=== PATIENT | female | born 1965 | race Caucasian/White ===

== ENCOUNTER 2018-08-13 05:14 | Emergency (ER) | payer BC, OTHER ==
--- NOTE | 2018-08-13 05:39 | EDM.PDOC ---
ED HPI GENERAL MEDICAL PROBLEM - General Chief Complaint: Upper Extremity Injury/Pain Stated Complaint: FELL- HURT LEFT ELBOW Time Seen by Provider: 08/13/18 05:31 - History of Present Illness INITIAL COMMENTS - FREE TEXT/NARRATIVE: HISTORY AND PHYSICAL: History of present illness: The patient is a 53-year-old female who says that she slipped on the ice and fell approximately an hour ago is going out for the dog. She said that when she fell she landed directly on the left elbow hitting the olecranon area but no outstretched arm. She did not pass out or black out and did not hit her head neck or back and has no head neck or back pain. She has no other extremity complaints and said she noticed swelling there but did not take anything for the pain prior to coming here. She said that she only came here at the insistence of her significant other. She has no distal wrist or hand pain per se but feels tingling in the fingers and she has not been moving them very much. She has no proximal humerus or shoulder pain and no clavicle pain. Review of systems: As per history of present illness and below otherwise all systems reviewed and negative. Past medical history: As per history of present illness and as reviewed below otherwise noncontributory. Surgical history: As per history of present illness and as reviewed below otherwise noncontributory. Social history: No reported history of drug or alcohol abuse. Family history: As per history of present illness and as reviewed below otherwise noncontributory. Physical exam: General: Well-developed well-nourished female who is nontoxic and vital signs are noted by me HEENT: Atraumatic, normocephalic, negative for conjunctival pallor or scleral icterus, mucous membranes moist, throat clear, neck supple, nontender, trachea midline. There are no midline step-offs in his defects of the cervical spine Lungs: Clear to auscultation, breath sounds equal bilaterally, chest nontender. Heart: S1S2, regular rate and rhythm no overt murmurs Abdomen: Deferred Pelvis: Deferred Genitourinary: Deferred. Rectal: Deferred. Extremities: Atraumatic, full range of motion of all extremities with the exception of the left elbow with the patient has tenderness and localized olecranon swelling. There is tenderness with palpation of the olecranon as well as the supracondylar areas but no proximal humerus apical or shoulder tenderness and no distal radius ulna wrist and hand or digit tenderness on the left. 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 Neuro: Awake, alert, oriented. Cranial nerves II through XII unremarkable. Cerebellum unremarkable. Motor and sensory unremarkable throughout. Exam nonfocal. Diagnostics: X-ray left elbow Therapeutics: Sling Impression: Fall with left elbow injury Definitive disposition and diagnosis as appropriate pending reevaluation and review of above. left elbow Pain Score (Numeric/FACES): 6 - Related Data Allergies Allergy/AdvReac Type Severity Reaction Status Date / Time No Known Allergies Allergy Verified 08/13/18 05:31 Home Meds: Home Meds . [No Known Home Meds] 09/08/15 [History] Past Medical History - Past Health History Medical/Surgical History: Denies Medical/Surgical History - Infectious Disease History Infectious Disease History: Reports: Chicken Pox Other Infectious Disease History: childhood. Social & Family History - Family History Family Medical History: Noncontributory - Tobacco Use Smoking Status *Q: Current Every Day Smoker Years of Tobacco use: 30 Packs/Tins Daily: 0.5 - Caffeine Use Caffeine Use: Reports: Coffee - Recreational Drug Use Recreational Drug Use: No Review of Systems - Review of Systems Review Of Systems: ROS reveals no pertinent complaints other than HPI. ED EXAM, GENERAL - Physical Exam Exam: See Below (See dictation) Course - Vital Signs Last Recorded V/S: Last Vital Signs Temp 36.6 C 08/13/18 05:29 Pulse 88 08/13/18 05:29 Resp 19 08/13/18 05:29 BP 142/80 H 08/13/18 05:29 Pulse Ox 96 08/13/18 05:29 - Orders/Labs/Meds Orders: Active Orders 24 hr Category Date Time Status DME for Discharge [COMM] Stat Oth 08/13/18 06:17 Ordered Departure - Departure Time of Disposition: 06:19 Disposition: Home, Self-Care 01 Condition: Good Clinical Impression: Injury of left elbow Qualifiers: Encounter type: initial encounter Qualified Code(s): S59.902A - Unspecified injury of left elbow, initial encounter - Discharge Information Referrals: PCP,None [Primary Care Provider] - Forms: ED Department Discharge Additional Instructions: The following information is given to patients seen in the emergency department who are being discharged to home. This information is to outline your options for follow-up care. We provide all patients seen in our emergency department with a follow-up referral. The need for follow-up, as well as the timing and circumstances, are variable depending upon the specifics of your emergency department visit. If you don't have a primary care physician on staff, we will provide you with a referral. We always advise you to contact your personal physician following an emergency department visit to inform them of the circumstance of the visit and for follow-up with them and/or the need for any referrals to a consulting specialist. The emergency department will also refer you to a specialist when appropriate. This referral assures that you have the opportunity for followup care with a specialist. All of these measure are taken in an effort to provide you with optimal care, which includes your followup. Under all circumstances we always encourage you to contact your private physician who remains a resource for coordinating your care. When calling for followup care, please make the office aware that this follow-up is from your recent emergency room visit. If for any reason you are refused follow-up, please contact the [facility] emergency department at and ask to speak to the emergency department charge nurse. [facility]--Orthopedic clinic Professional [address] [address] Keep ice on the area and elevate as much as possible. Please call and schedule follow-up appointment in our ortho clinic for further care and evaluation return to ER as needed as discussed. Use [id number] Tylenol and/or ibuprofen for pain management. Use sling for next 2-3 days for support but removing and range of motion the elbow every 1-2 hours as we discussed to keep the joint open and loose - My Orders Last 24 Hours: My Active Orders 08/13/18 06:17 DME for Discharge [COMM] Stat - Assessment/Plan Last 24 Hours: My Active Orders 08/13/18 06:17 DME for Discharge [COMM] Stat
--- NOTE | 2018-08-13 06:15 | CR ---
3 VIEWS left elbow INDICATION: Injury. IMPRESSION: No visualized fracture. Alignments anatomic. Joint spaces unremarkable. Dictated by Murphy Moncada MD @ Aug 13 2018 6:13AM Signed by Dr. Murphy Moncada @ Aug 13 2018 6:13AM
[2018-08-13 06:41] VITALS: BP 144/100
== END 2018-08-13 06:30 | disposition home or self-care (01) ==
LOC: MW.ED 05:14
DX: S59.902A Unspecified injury of left elbow, initial encounter (principal); W00.0XXA Fall on same level due to ice and snow, initial encounter; F17.210 Nicotine dependence, cigarettes, uncomplicated
CPT/HCPCS: 73080-26-LT; 73080-LT; 99283

== ENCOUNTER 2019-02-26 08:44 | Day surgery (SDC) | payer OTHER ==
[~2019-02-26 08:44] MED LIST: Lactated Ringers 1,000 ML IV SCH; Lidocaine 2% 5 ML SDV ONE; Midazolam 1 MG/ML 2 ML SDV ONE; Propofol 200 MG/20 ML SDV ONE; fentaNYL 100 MCG/2 ML SDV ONE
--- NOTE | 2019-02-26 09:32 | PCM.PREANE ---
Preanesthetic Assessment - Anesthesia/Transfusion/Family Hx Anesthesia History: Prior Anesthesia Without Reaction Family History of Anesthesia Reaction: No Transfusion History: No Prior Transfusion(s) - Review of Systems General: No Symptoms Pulmonary: No Symptoms Cardiovascular: No Symptoms Neurological: No Symptoms Other: Reports: None - Physical Assessment Vital Signs: Last Vital Signs Temp 97.5 F 02/26/19 08:55 Pulse 77 02/26/19 08:55 Resp 15 02/26/19 08:55 BP 132/92 H 02/26/19 08:55 Pulse Ox 95 02/26/19 08:55 Height: 5 ft 7 in Weight: 88.904 kg ASA Class: 5E Emergency Mental Status: Alert & Oriented x3 Airway Class: Mallampati = 2 Dentition: Reports: Normal Dentition ROM/Head Extension: Full Lungs: Clear to Auscultation, Normal Respiratory Effort Cardiovascular: Regular Rate, Regular Rhythm - Allergies Allergies/Adverse Reactions: Allergies Allergy/AdvReac Type Severity Reaction Status Date / Time No Known Allergies Allergy Verified 02/24/19 14:09 - Blood Blood Available: No - Anesthesia Plan Pre-Op Medication Ordered: None - Acknowledgements Anesthesia Type Planned: General Anesthesia Pt an Appropriate Candidate for the Planned Anesthesia: Yes Alternatives and Risks of Anesthesia Discussed w Pt/Guardian: Yes Pt/Guardian Understands and Agrees with Anesthesia Plan: Yes Additional Comments: PMH: melanotic stool PLAN: tiva PreAnesthesia Questionnaire - Past Health History Medical/Surgical History: Denies Medical/Surgical History HEENT History: Reports: Other (See Below) Other HEENT History: wears glasses, has upper and lower denture Cardiovascular History: Reports: Other (See Below) Other Cardiovascular History: has varicose veins Gastrointestinal History: Reports: Hiatal Hernia 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 - Past Surgical History Female Surgical History: Reports: Section, Cervical Cryotherapy - SUBSTANCE USE Smoking Status *Q: Current Every Day Smoker Tobacco Use Within Last Twelve Months: Cigarettes Recreational Drug Use History: No - HOME MEDS Home Medications: Home Meds . [No Known Home Meds] 09/08/15 [History] - CURRENT (IN HOUSE) MEDS Current Meds: Current Medications Lactated Ringer's (Ringers, Lactated) 1,000 mls @ 125 mls/hr IV ASDIRECTED ONEL Last Admin: 02/26/19 08:13 Dose: 125 mls/hr Discontinued Medications Fentanyl (Sublimaze) Confirm Administered Dose 200 mcg .ROUTE .STK-MED ONE Stop: 02/26/19 07:30 Lidocaine (Xylocaine-Mpf 2%) Confirm Administered Dose 5 ml .ROUTE .STK-MED ONE Stop: 02/26/19 07:30 Midazolam HCl (Versed 1 Mg/Ml) Confirm Administered Dose 2 mg .ROUTE .STK-MED ONE Stop: 02/26/19 07:30 Propofol (Diprivan 20 Ml) Confirm Administered Dose 400 mg .ROUTE .STK-MED ONE Stop: 02/26/19 07:30
[2019-02-26] MEDS ORDERED: Glycopyrrolate 0.2 MG/ML SDV ONE (11:03)
--- NOTE | 2019-02-26 11:38 | PCM.OPNOTE ---
- General Post-Op/Procedure Note Date of Surgery/Procedure: 02/26/19 Operative Procedure(s): egd w bx. colonoscopy Findings: see dict [id number] Pre Op Diagnosis: black tarry stool and gerd Post-Op Diagnosis: Same Anesthesia Technique: Moderate Sedation Primary Surgeon: Kingsley Dutta Pathology: egd bx Complications: None Condition: Good
--- NOTE | 2019-02-26 11:53 | PCM.POSTAN ---
POST ANESTHESIA ASSESSMENT - MENTAL STATUS Mental Status: Alert - VITAL SIGNS Vital Signs: Last Vital Signs Temp 36.4 C 02/26/19 08:55 Pulse 82 02/26/19 11:45 Resp 15 02/26/19 11:45 BP 133/87 02/26/19 11:45 Pulse Ox 95 02/26/19 11:45 - RESPIRATORY Respiratory Status: Respiratory Rate WNL - CARDIOVASCULAR CV Status: Pulse Rate WNL - GASTROINTESTINAL GI Status: No Symptoms - POST OP HYDRATION Hydration Status: Adequate & Stable
[2019-02-26 12:11] VITALS: BP 142/93
--- NOTE | 2019-02-26 12:42 | PCM48HPAN ---
Post Anesthesia Note - EVALUATION WITHIN 48HRS OF ANESTHETIC Vital Signs in Normal Range: Yes Patient Participated in Evaluation: Yes Respiratory Function Stable: Yes Airway Patent: Yes Cardiovascular Function Stable: Yes Hydration Status Stable: Yes Pain Control Satisfactory: Yes Nausea and Vomiting Control Satisfactory: Yes Mental Status Recovered: Yes Vital Signs: Last Vital Signs Temp 97.5 F 02/26/19 08:55 Pulse 98 02/26/19 11:52 Resp 15 02/26/19 11:52 BP 142/93 H 02/26/19 11:52 Pulse Ox 95 02/26/19 11:52
--- NOTE | 2019-02-26 12:59 | OR ---
SURGEON: Kingsley Dutta MD DATE OF PROCEDURE: 02/26/2019 PREOPERATIVE DIAGNOSES: Change in bowel habit and black tarry stool and gastroesophageal reflux disease. POSTOPERATIVE DIAGNOSES: Esophagogastroduodenoscopy findings are gastritis and gastroesophageal reflux disease. Colonoscopy finding is diverticulosis. PROCEDURES PERFORMED: Esophagogastroduodenoscopy with biopsy and colonoscopy. DESCRIPTION OF PROCEDURE: EGD: The patient was taken to the endoscopy room, and with the CABLE INSTALLER REPAIRER HELPER, Diprivan was administered. A well-lubricated EGD scope was gently inserted through the oropharynx, down the esophagus, passing through the gastroesophageal junction, into the stomach. The mucosa was examined upon the passage. Any etiology will be noted. Once in the stomach, we continued to advance to the distal antrum, passed through the pylorus into the second portion of the duodenum. Again, the mucosa was examined for any abnormality and etiology. The scope was then retrieved back to the stomach and then retroflexed to look at the fundus of the stomach. If a biopsy was indicated, we will biopsy the antrum, body, and gastroesophageal junction. The air will be sucked out while the scope is retrieved to reduce the patient's discomfort. The patient tolerated the procedure well. There were no intraoperative complications. Dr. Dutta was present through the whole procedure. Prior to surgery, a time-out had been called, the patient identified, procedure identified and antibiotic administered. The patient was taken to the endoscopy room. A time out was called, patient identified, and procedure identified. Diprivan was then administrated. Patient went from awake to sleep, hearing doctor talking or door closing is normal. Perineum inspection and digital examination were then performed. A well- lubricated colonoscope was gently inserted through the rectum, advanced past the rectosigmoid junction, the descending colon, splenic flexure, transverse colon, hepatic flexure, ascending colon, arrived to the cecum. Cecum was identified as dictated in the finding. Then the scope was carefully withdrawn while attention was paid to the mucosal surface for any abnormality. Air will be sucked out during the scope withdrawal. At the rectum, retroflexed to examine any rectal diseases, fistula or hemorrhoids. Patient tolerated procedure well. There were no intraoperative complications, and Dr. Dutta was present throughout the whole procedure. FINDINGS: EGD findings: 1. The patient is easily sedated with CABLE INSTALLER REPAIRER HELPER and Diprivan, the patient is soundly snoring. 2. Oropharynx and proximal esophagus are free of disease, inflammation, or stricture. Distal esophagus at distance 40 shows a moderate salmon-colored change, suggests a moderate amount of acid reflux. Stomach rugae are normal in appearance and antrum is quite inflamed and consistent with gastritis. Duodenum is grossly normal. Retroflexed look at the fundus of the stomach, there is no hiatal hernia. During the whole study, there is no blood, ulcer, or food particle observed. Biopsy done at antrum, body, GE junction at 40 and sucked out the gas while scope pulling out. Colonoscopy findings: 1. The patient is easily sedated with CABLE INSTALLER REPAIRER HELPER and Diprivan, the patient is soundly snoring. 2. Bowel prep is marginally to unacceptable, large amount of yellow opaque stool coating the mucosa, although I was able to irrigate, but it still came back up the scope and this is a compromised study. 3. Cecum indicated by ileocecal fold, one-to-one indentation, and appendiceal orifice. The ScopeGuide is pointing south. Light emittance is not observed. Mucosa examined upon scope pulling out with large amount of irrigation and again this a compromised study. The patient has diverticulosis at the sigmoid colon. No signs or symptoms of diverticulitis. No polyp, mass, growth, inflammation, stricture, ulceration, AV malformation, bleeding, none of those. The patient has minimal internal hemorrhoids, no external hemorrhoids. The patient will need to repeat the colonoscopy with extended bowel prep in 12 months because of the marginally acceptable bowel prep. MC / SONJA /[id number]
== END 2019-02-26 12:30 | disposition home or self-care (01) ==
LOC: MW.SDS 08:44
PROVIDERS: ATTEND Surgery
DX: R19.4 Change in bowel habit (principal); R19.5 Other fecal abnormalities; K29.50 Unspecified chronic gastritis without bleeding; K21.0 Gastro-esophageal reflux disease with esophagitis; K57.30 Diverticulosis of large intestine without perforation or abscess without bleeding; K64.8 Other hemorrhoids; F17.210 Nicotine dependence, cigarettes, uncomplicated
CPT/HCPCS: 43239; 45378; 88305; 88312; J2001; J2250; J2704; J3490; J7120; 00813; J3010

== ENCOUNTER 2019-03-10 07:46 | Day surgery (SDC) | payer OTHER ==
[~2019-03-10 07:46] MED LIST changes: +ceFAZolin 2 GM in Premix Bag 1 BAG IV ONE
--- NOTE | 2019-03-10 09:04 | PCM.PREANE ---
Preanesthetic Assessment - Anesthesia/Transfusion/Family Hx Anesthesia History: Prior Anesthesia Without Reaction Family History of Anesthesia Reaction: No Transfusion History: No Prior Transfusion(s) Intubation History: Unknown - Review of Systems General: No Symptoms Pulmonary: No Symptoms Cardiovascular: No Symptoms Gastrointestinal: No Symptoms Neurological: No Symptoms Other: Reports: None - Physical Assessment NPO Status Date: 03/09/19 NPO Status Time: 23:00 Vital Signs: Last Vital Signs Temp 36.3 C 03/10/19 08:00 Pulse 72 03/10/19 08:00 Resp 16 03/10/19 08:00 BP 139/88 03/10/19 08:00 Pulse Ox 95 03/10/19 08:00 Height: 5 ft 7 in Weight: 88.904 kg ASA Class: 2 Mental Status: Alert & Oriented x3 Airway Class: Mallampati = 2 Dentition: Reports: Dentures (upper and lower) Thyro-Mental Finger Breadths: 3 Mouth Opening Finger Breadths: 3 ROM/Head Extension: Full Lungs: Clear to Auscultation, Normal Respiratory Effort Cardiovascular: Regular Rate, Regular Rhythm - Lab Values: Laboratory Last Values Urine HCG, Qual NEGATIVE (NEGATIVE) 03/10/19 08:00 - Allergies Allergies/Adverse Reactions: Allergies Allergy/AdvReac Type Severity Reaction Status Date / Time No Known Allergies Allergy Verified 03/04/19 12:18 - Blood Blood Available: No - Anesthesia Plan Pre-Op Medication Ordered: None - Acknowledgements Anesthesia Type Planned: General Anesthesia Pt an Appropriate Candidate for the Planned Anesthesia: Yes Alternatives and Risks of Anesthesia Discussed w Pt/Guardian: Yes Pt/Guardian Understands and Agrees with Anesthesia Plan: Yes PreAnesthesia Questionnaire - Past Health History Medical/Surgical History: Denies Medical/Surgical History HEENT History: Reports: Other (See Below) Other HEENT History: top and bottom dentures Cardiovascular History: Reports: None Other Cardiovascular History: has varicose veins Respiratory History: Reports: None Gastrointestinal History: Reports: None Genitourinary History: Reports: None DIRECTOR BUSINESS DEVELOPMENT History: Reports: Musculoskeletal History: Reports: None Neurological History: Reports: None Psychiatric History: Reports: None Endocrine/Metabolic History: Reports: Obesity/BMI 30+ Hematologic History: Reports: None Immunologic History: Reports: None Oncologic (Cancer) History: Reports: None Dermatologic History: Reports: None - Infectious Disease History Infectious Disease History: Reports: Chicken Pox Other Infectious Disease History: childhood. - Past Surgical History Head Surgeries/Procedures: Reports: None HEENT Surgical History: Reports: None Cardiovascular Surgical History: Reports: None Respiratory Surgical History: Reports: None GI Surgical History: Reports: Colonoscopy, EGD Female Surgical History: Reports: Section (x2), LEEP Endocrine Surgical History: Reports: None Neurological Surgical History: Reports: None Musculoskeletal Surgical History: Reports: None Oncologic Surgical History: Reports: None Dermatological Surgical History: Reports: None - SUBSTANCE USE Smoking Status *Q: Current Every Day Smoker (1/2 ppd) Tobacco Use Within Last Twelve Months: Cigarettes - HOME MEDS Home Medications: Home Meds Omeprazole 1 tab PO DAILY 03/04/19 [History] - CURRENT (IN HOUSE) MEDS Current Meds: Current Medications Lactated Ringer's (Ringers, Lactated) 1,000 mls @ 125 mls/hr IV ASDIRECTED ONEL Last Admin: 03/10/19 08:23 Dose: 125 mls/hr Discontinued Medications Fentanyl (Sublimaze) Confirm Administered Dose 100 mcg .ROUTE .STK-MED ONE Stop: 03/10/19 07:29 Cefazolin Sodium/Dextrose 2 gm (/ Premix) 50 mls @ 100 mls/hr IV ONETIME ONE Stop: 03/10/19 05:29 Lidocaine (Xylocaine-Mpf 2%) Confirm Administered Dose 5 ml .ROUTE .STK-MED ONE Stop: 03/10/19 07:29 Midazolam HCl (Versed 1 Mg/Ml) Confirm Administered Dose 2 mg .ROUTE .STK-MED ONE Stop: 03/10/19 07:29 Propofol (Diprivan 20 Ml) Confirm Administered Dose 400 mg .ROUTE .STK-MED ONE Stop: 03/10/19 07:29
[2019-03-10] MEDS ORDERED: Atropine 0.1 MG/ML 10 ML Syringe IVPUSH PRN ×2 (09:11)
[2019-03-10] MEDS ORDERED: Naloxone 0.4 MG/ML Syringe IVPUSH PRN (09:11)
[2019-03-10] MEDS ORDERED: EPINEPHrine 1:10,000 1 MG/10 ML Syringe IVPUSH PRN (09:11)
[2019-03-10] MEDS ORDERED: Albuterol 0.083% 2.5 MG/3 ML Neb Soln NEB PRN (09:11)
[2019-03-10] MEDS ORDERED: 50% Dextrose in Water 50 ML Syringe IVPUSH PRN (09:11)
[2019-03-10] MEDS ORDERED: Bupivacaine 25%/EPINEPHrine/PF 30 ML ONE (09:23)
[2019-03-10] MEDS ORDERED: Sodium Chloride 0.9% 20 ML ONE (09:45)
[2019-03-10] MEDS ORDERED: ceFAZolin 1 GM Vial ONE (09:45)
[2019-03-10] MEDS ORDERED: Octyl 2-Cyanoacrylate 1 Tube ONE ×2 (10:13→10:38)
[2019-03-10] MEDS ORDERED: Meperidine PF 25 MG/ML Syringe ONE (10:42)
[2019-03-10] MEDS ORDERED: Acetaminophen/oxyCODONE 325-5 MG Tab PO PRN (10:55)
--- NOTE | 2019-03-10 10:55 | PCM.OPNOTE ---
- General Post-Op/Procedure Note Date of Surgery/Procedure: 03/10/19 Operative Procedure(s): EXCISIONAL BIOpsy back mass Findings: well ensulated lipoma; [id number] Pre Op Diagnosis: back mass Post-Op Diagnosis: Same Anesthesia Technique: General Mask, Local, MAC Primary Surgeon: Kingsley Dutta Pathology: sent Complications: None Condition: Good
[2019-03-10] MEDS: fentaNYL 100 MCG/2 ML SDV IVPUSH PRN ×4 (10:56→11:31)
--- NOTE | 2019-03-10 11:46 | PCM.POSTAN ---
POST ANESTHESIA ASSESSMENT - MENTAL STATUS Mental Status: Alert, Oriented - VITAL SIGNS Vital Signs: Last Vital Signs Temp 36.8 C 03/10/19 10:44 Pulse 85 03/10/19 11:39 Resp 13 03/10/19 11:39 BP 123/80 03/10/19 11:39 Pulse Ox 96 03/10/19 11:39 - RESPIRATORY Respiratory Status: Respiratory Rate WNL, Airway Patent, O2 Saturation Stable - CARDIOVASCULAR CV Status: Pulse Rate WNL, Blood Pressure Stable - GASTROINTESTINAL GI Status: No Symptoms - PAIN Pain Score: 0 - POST OP HYDRATION Hydration Status: Adequate & Stable - OBSERVATIONS Free Text/Narrative:: no anesthesia problems
--- NOTE | 2019-03-10 11:49 | OR ---
SURGEON: Kingsley Dutta MD DATE OF PROCEDURE: 03/10/2019 PREOPERATIVE DIAGNOSIS: Back mass. POSTOPERATIVE DIAGNOSIS: Back mass. PROCEDURE PERFORMED: Excision biopsy. PRIMARY SURGEON: Kingsley Dutta MD. COMPLICATIONS: None. FINDINGS: A very well encapsulated lipoma, but not in one piece, in several pieces. Dimension is about 6 x 9 cm, excised and sent for pathology. DESCRIPTION OF PROCEDURE: The patient was taken to the operating room and placed in a supine position. The patient was then repositioned into a decub position with the right side down, left side up, and the patient's back area prepped and draped in a sterile fashion. General mild sedation was given. Time-out was then called, patient identified, procedure identified. Antibiotic given. Procedure then started. After assessment of appropriate landmark, the mass was a little bit towards the left side, low back, and on the midline. Local anesthetic was infused above the mass, and using a skin scalpel, a transverse incision was made, an incision about 11 cm, and carefully dissected down, exposed the mass which was well encapsulated. The capsule opened and the mass excised which was on top of the back fascial muscle. The fascia had not been violated. The mass was excised, sent for pathology. The wound was irrigated copiously. The wound was closed with 2-0 deep stitches and 3-0 Vicryl subcutaneously followed with Dermabond. The patient was repositioned into supine position, awakened, and transferred to recovery room in hemodynamically stable condition. The patient tolerated the procedure well. There were no intraoperative complications. Dr. Dutta was present through the whole procedure. MC / SONJA /[id number]
[2019-03-10] MEDS ORDERED: HYDROmorphone 2 MG/ML Syringe IVPUSH ONE (12:21)
--- NOTE | 2019-03-10 13:10 | PCM48HPAN ---
Post Anesthesia Note - EVALUATION WITHIN 48HRS OF ANESTHETIC Vital Signs in Normal Range: Yes Patient Participated in Evaluation: Yes Respiratory Function Stable: Yes Airway Patent: Yes Cardiovascular Function Stable: Yes Hydration Status Stable: Yes Pain Control Satisfactory: Yes Nausea and Vomiting Control Satisfactory: Yes Mental Status Recovered: Yes Vital Signs: Last Vital Signs Temp 36.8 C 03/10/19 10:44 Pulse 85 03/10/19 11:39 Resp 13 03/10/19 11:39 BP 123/80 03/10/19 11:39 Pulse Ox 96 03/10/19 11:39 - COMMENTS/OBSERVATIONS Free Text/Narrative:: No anesthesia problems
[2019-03-10 14:21] VITALS: BP 114/72
== END 2019-03-10 13:30 | disposition home or self-care (01) ==
LOC: MW.SDS 07:46
PROVIDERS: ATTEND Surgery
DX: D17.1 Benign lipomatous neoplasm of skin and subcutaneous tissue of trunk (principal); I83.90 Asymptomatic varicose veins of unspecified lower extremity; F17.210 Nicotine dependence, cigarettes, uncomplicated; R19.5 Other fecal abnormalities; R19.7 Diarrhea, unspecified; Z79.899 Other long term (current) drug therapy
CPT/HCPCS: 81025; A9270-GY; J0690; J1170; J2001; J2175; J2250; J2704; J3010; J7120

== ENCOUNTER 2019-07-20 00:16 | Emergency (ER) | payer BC, OTHER ==
[2019-07-20] MEDS ORDERED: Sodium Chloride 0.9% 1,000 ML IV ONE (01:10)
--- NOTE | 2019-07-20 01:10 | EDM.PDOC ---
ED HPI GENERAL MEDICAL PROBLEM - General Chief Complaint: Fever Stated Complaint: FEVER Time Seen by Provider: 07/20/19 01:06 Source of Information: Reports: Patient History Limitations: Reports: No Limitations - History of Present Illness INITIAL COMMENTS - FREE TEXT/NARRATIVE: Patient had fever and chills since coming from [place]. Patient has been sick for 4 days. [place] hospital [place] Duration: Day(s):, Getting Worse Location: Reports: Chest Quality: Reports: Ache Severity: Moderate Improves with: Reports: None Worsens with: Reports: None Associated Symptoms: Reports: No Other Symptoms, Cough, cough w sputum, Fever/ Chills, Nausea/Vomiting, Shortness of Breath - Related Data Allergies Allergy/AdvReac Type Severity Reaction Status Date / Time No Known Allergies Allergy Verified 07/20/19 00:40 Home Meds: Home Meds . [No Known Home Meds] 07/20/19 [History] Past Medical History - Past Health History Medical/Surgical History: Denies Medical/Surgical History HEENT History: Reports: Other (See Below) Other HEENT History: top and bottom dentures Cardiovascular History: Reports: None Other Cardiovascular History: has varicose veins Respiratory History: Reports: None Gastrointestinal History: Reports: None Genitourinary History: Reports: None [employer] History: Reports: Musculoskeletal History: Reports: None Neurological History: Reports: None Psychiatric History: Reports: None Endocrine/Metabolic History: Reports: Obesity/BMI 30+ Hematologic History: Reports: None Immunologic History: Reports: None Oncologic (Cancer) History: Reports: None Dermatologic History: Reports: None - Infectious Disease History Infectious Disease History: Reports: Chicken Pox Other Infectious Disease History: childhood. - Past Surgical History Head Surgeries/Procedures: Reports: None HEENT Surgical History: Reports: None Cardiovascular Surgical History: Reports: None Respiratory Surgical History: Reports: None GI Surgical History: Reports: Colonoscopy, EGD Female Surgical History: Reports: Section, LEEP Endocrine Surgical History: Reports: None Neurological Surgical History: Reports: None Musculoskeletal Surgical History: Reports: None Oncologic Surgical History: Reports: None Dermatological Surgical History: Reports: None Social & Family History - Family History Family Medical History: Noncontributory - Tobacco Use Smoking Status *Q: Current Every Day Smoker Years of Tobacco use: 10 Packs/Tins Daily: 1 - Caffeine Use Caffeine Use: Reports: Coffee - Recreational Drug Use Recreational Drug Use: No ED ROS GENERAL - Review of Systems Review Of Systems: Comprehensive ROS is negative, except as noted in HPI. Constitutional: Reports: Fever, Chills, Malaise, Weakness, Fatigue HEENT: Reports: No Symptoms, Throat Pain Respiratory: Reports: Shortness of Breath, Cough Cardiovascular: Reports: No Symptoms Endocrine: Reports: No Symptoms GI/Abdominal: Reports: No Symptoms : Reports: No Symptoms Musculoskeletal: Reports: No Symptoms Skin: Reports: No Symptoms Neurological: Reports: No Symptoms Psychiatric: Reports: No Symptoms Hematologic/Lymphatic: Reports: No Symptoms Immunologic: Reports: No Symptoms ED EXAM, SEPSIS - Physical Exam Exam: See Below Exam Limited By: No Limitations General Appearance: Alert, WD/WN, No Apparent Distress Eye Exam: Bilateral Eye: Normal Fundi, Normal Inspection GI/Abdominal Exam: Normal Bowel Sounds, Soft, Non-Tender, No Distention, No Abnormal Bruit Neurological: Alert, Oriented, CN II-XII Intact, Normal Cognition, Normal Reflexes, No Motor/Sensory Deficits Psychiatric: Normal Affect, Normal Mood Skin: Warm, Dry Course - Vital Signs Last Recorded V/S: Last Vital Signs Temp 100.1 F 07/20/19 00:40 Pulse 107 H 07/20/19 00:40 Resp 20 07/20/19 00:40 BP 167/103 H 07/20/19 00:40 Pulse Ox 95 07/20/19 00:40 - Orders/Labs/Meds Orders: Active Orders 24 hr Category Date Time Status CULTURE STREP A CONFIRMATION [] Stat Lab 07/20/19 01:00 Results CULTURE URINE [] Stat Lab 07/20/19 00:35 Received STREP SCRN A RAPID W CULT CONF [] Stat Lab 07/20/19 01:00 Results Labs: Laboratory Tests 07/20/19 07/20/19 07/20/19 Range/Units 00:35 00:58 00:58 WBC 7.70 (4.0-11.0) K/uL RBC 4.97 (4.30-5.90) M/uL Hgb 14.5 (12.0-16.0) g/dL Hct 40.7 (36.0-46.0) % MCV 81.9 (80.0-98.0) fL MCH 29.2 (27.0-32.0) pg MCHC 35.6 (31.0-37.0) g/dL RDW Std Deviation 41.4 (28.0-62.0) fl RDW Coeff of [place] 14 (11.0-15.0) % Plt Count 163 (150-400) K/uL MPV 11.30 (7.40-12.00) fL Sodium 140 (136-145) mmol/L Potassium 3.7 (3.5-5.1) mmol/L Chloride 101 (98-107) mmol/L Carbon Dioxide 27.4 (21.0-32.0) mmol/L BUN 11 (7.0-18.0) mg/dL Creatinine 0.8 (0.6-1.0) mg/dL Est Cr Clr Drug Dosing 79.08 mL/min Estimated GFR (MDRD) > 60.0 ml/min Glucose 111 H (74-106) mg/dL Calcium 8.9 (8.5-10.1) mg/dL Total Bilirubin 0.1 L (0.2-1.0) mg/dL AST 31 (15-37) IU/L ALT 46 (14-63) IU/L Alkaline Phosphatase 91 (46-116) U/L Total Protein 8.0 (6.4-8.2) g/dL Albumin 3.7 (3.4-5.0) g/dL Globulin 4.3 H (2.6-4.0) g/dL Albumin/Globulin Ratio 0.9 (0.9-1.6) Urine Color YELLOW Urine Appearance SLT CLOUDY Urine pH 6.0 (5.0-8.0) Ur Specific [place] 1.025 (1.001-1.035) Urine Protein TRACE H (NEGATIVE) mg/dL Urine Glucose (UA) NEGATIVE (NEGATIVE) mg/dL Urine Ketones NEGATIVE (NEGATIVE) mg/dL Urine Occult Blood LARGE H (NEGATIVE) Urine Nitrite POSITIVE H (NEGATIVE) Urine Bilirubin NEGATIVE (NEGATIVE) Urine Urobilinogen 0.2 (<2.0) EU/dL Ur Leukocyte Esterase NEGATIVE (NEGATIVE) Urine RBC 0-3 (0-2/HPF) Urine WBC 0-3 (0-5/HPF) Ur Epithelial Cells FEW (NONE-FEW) Urine Bacteria 2+ H (NEGATIVE) Urine Mucus LIGHT (NONE-MOD) Meds: Medications Discontinued Medications Generic Name Dose Route Start Last Admin Trade Name Freq PRN Reason Stop Dose Admin Sodium Chloride 1,000 mls @ 1,000 mls/hr 07/20/19 01:10 07/20/19 01:19 Normal Saline IV 07/20/19 02:09 1,000 mls/hr .Bolus ONE Administration Ketorolac Tromethamine 30 mg 07/20/19 01:11 07/20/19 01:20 Toradol IVPUSH 07/20/19 01:12 30 mg ONETIME ONE Administration Ondansetron HCl 4 mg 07/20/19 01:17 07/20/19 01:19 Zofran IVPUSH 07/20/19 01:18 4 mg ONETIME ONE Administration Ondansetron HCl Confirm 07/20/19 01:18 07/20/19 01:31 Zofran Administered 07/20/19 01:19 Not Given Dose 4 mg .ROUTE .STK-MED ONE Departure - Departure Time of Disposition: 02:10 Disposition: Home, Self-Care 01 Clinical Impression: Urinary tract infection - Discharge Information Instructions: Antibiotic Medicine, Adult, [id number] Referrals: Alicia Estevez, WOMEN NURSE [Primary Care Provider] - Forms: ED Department Discharge Sepsis Event Note - Evaluation Sepsis Screening Result: No Definite Risk - Focused Exam Vital Signs: Vital Signs Temp Pulse Resp BP Pulse Ox 07/20/19 00:40 100.1 F 107 H 20 167/103 H 95 Date Exam was Performed: 07/20/19 Time Exam was Performed: 02:09 - My Orders Last 24 Hours: My Active Orders 07/20/19 00:35 CULTURE URINE [RM] Stat 07/20/19 01:00 CULTURE STREP A CONFIRMATION [RM] Stat STREP SCRN A RAPID W CULT CONF [] Stat - Assessment/Plan Last 24 Hours: My Active Orders 07/20/19 00:35 CULTURE URINE [RM] Stat 07/20/19 01:00 CULTURE STREP A CONFIRMATION [] Stat STREP SCRN A RAPID W CULT CONF [] Stat
[2019-07-20] MEDS ORDERED: Ketorolac 30 MG/ML SDV IVPUSH ONE (01:11)
[2019-07-20] MEDS ORDERED: Ondansetron 4 MG/2 ML SDV IVPUSH ONE (01:17)
[2019-07-20] MEDS ORDERED: Ondansetron 4 MG/2 ML SDV ONE (01:18)
[2019-07-20 01:39] LABS: BLOOD UREA NITROGEN,BUN 11 mg/dL (7.0-18.0); CARBON DIOXIDE,CO2 27.4 mmol/L (21.0-32.0); CHLORIDE,CL 101 mmol/L (98-107); GLUCOSE RANDOM 111 mg/dL (74-106); POTASSIUM,K 3.7 mmol/L (3.5-5.1); SODIUM,NA 140 mmol/L (136-145)
--- NOTE | 2019-07-20 01:56 | CR ---
INDICATION: chest pain TECHNIQUE: Chest 1 view. COMPARISON: None. FINDINGS: Cardiovascular and mediastinum: Heart size and vasculature are normal in caliber and appearance. Mediastinum is within normal limits. Lungs and pleural space: Lungs are clear. No sign of infiltrate or mass. No sign of pleural effusion. No pneumothorax. Bones and soft tissues: No significant findings. IMPRESSION: Unremarkable chest. Dictated by: Miles Walker MD @ 07/20/2019 01:55:40 (Electronically Signed)
[2019-07-20 02:13] VITALS: BP 125/89; PULSE 84
== END 2019-07-20 02:25 | disposition home or self-care (01) ==
LOC: MW.ED 00:16
DX: N39.0 Urinary tract infection, site not specified (principal); E66.9 Obesity, unspecified; Z68.54 Body mass index [BMI] pediatric, 95th percentile for age to less than 120% of the 95th percentile for age; F17.210 Nicotine dependence, cigarettes, uncomplicated
CPT/HCPCS: 36415; 71045; 80053; 81001; 85027; 87081; 87086; 87088; 87186; 87804; 87880; 96361; 96374; 96375; 99284; J1885; J2405; J7030; 99283

== ENCOUNTER 2022-01-10 18:14 | Emergency (ER) | payer BC ==
[2022-01-10] MEDS ORDERED: Sodium Chloride 0.9% 2.5 ML Syringe FLUSH PRN (22:44)
[2022-01-10] MEDS ORDERED: Sodium Chloride 0.9% 10 ML Syringe FLUSH PRN (22:44)
[2022-01-10] MEDS ORDERED: Ondansetron 4 MG/2 ML SDV IVPUSH ONE (22:44)
[2022-01-10] MEDS ORDERED: Sodium Chloride 0.9% 1,000 ML IV ONE (22:44)
[2022-01-10 22:59] LABS: CARBON DIOXIDE,CO2 27.4 mmol/L (21.0-32.0); POTASSIUM,K 3.6 mmol/L (3.5-5.1)
[2022-01-11] MEDS ORDERED: Ketorolac 30 MG/ML SDV IVPUSH ONE (00:20)
[2022-01-11] MEDS ORDERED: Cyclobenzaprine 10 MG Tab PO ONE (00:20)
[2022-01-11] MEDS ORDERED: fentaNYL 50 MCG/ML SDV IVPUSH ONE (00:21)
[2022-01-11] MEDS ORDERED: Ondansetron 4 MG/2 ML SDV IVPUSH ONE (00:21)
[2022-01-11 01:10] VITALS: BP 119/72; PULSE 77
== END 2022-01-11 00:52 | disposition home or self-care (01) ==
LOC: MW.ED 18:14
DX: R10.9 Unspecified abdominal pain (principal); M54.50 Low back pain, unspecified; E66.9 Obesity, unspecified; I10 Essential (primary) hypertension; E11.9 Type 2 diabetes mellitus without complications; Z68.31 Body mass index [BMI] 31.0-31.9, adult
CPT/HCPCS: 36415; 74176; 80053; 81001; 85025; 96361; 96374; 96375; 96376; 99284; A9270; J1885; J2405; J3010; J3490; J7030